=== PATIENT | female | born 1970 | race African-American/Black ===

== ENCOUNTER 2024-09-26 09:08 | Emergency (ER) | payer OTHER ==
[~2024-09-26] VITALS: Ht 162.6 cm; Wt 78.1 kg
[2024-09-26 09:20] VITALS: BP 128/82; PULSE 72; RESP 18; TEMP 97.2; O2SAT 96
[2024-09-26] MEDS: KETOROLAC TROMETHAMINE 30 MG/ML VIAL IM ONE (11:40)
[2024-09-26] MEDS ORDERED: IBUP-1492 PO (11:47)
== END 2024-09-26 12:10 | disposition home or self-care (01) ==
LOC: EMS 09:22
DX: S93.401A Sprain of unspecified ligament of right ankle, initial encounter (principal); S93.601A Unspecified sprain of right foot, initial encounter; S90.121A Contusion of right lesser toe(s) without damage to nail, initial encounter; W22.8XXA Striking against or struck by other objects, initial encounter; Y93.K1 Activity, walking an animal; Y92.89 Other specified places as the place of occurrence of the external cause; Y99.8 Other external cause status
CPT/HCPCS: 99284; 29515; 73610; 73630; 96372; J1885